=== PATIENT | female | born 1985 | race Caucasian/White ===

== ENCOUNTER 2022-11-18 06:12 | Inpatient (IN) ==
[2022-11-18] MEDS ORDERED: ANCEF VIAL 1 GRAM ONE (06:45)
[2022-11-18] MEDS ORDERED: NS 100 ML IV 100 ML ONE (06:45)
[2022-11-18] MEDS ORDERED: D5 1/2 NS 1,000 ML 1,000 ML IV ONE ×2 (06:46→08:28)
[2022-11-18] MEDS ORDERED: BETADINE SOLN ONE (06:56)
[2022-11-18] MEDS ORDERED: FENTANYL VIAL INJ 100 mcg ONE (07:01)
[2022-11-18] MEDS ORDERED: VERSED ONE (07:01)
[2022-11-18] MEDS ORDERED: ZOFRAN INJ 4 MG VIAL ONE (07:01)
[2022-11-18] MEDS ORDERED: DECADRON INJ ONE (07:01)
[2022-11-18] MEDS ORDERED: PEPCID 20 MG VIAL ONE (07:01)
[2022-11-18] MEDS ORDERED: TORADOL 30 MG VIAL ONE (07:02)
[2022-11-18] MEDS ORDERED: BRIDION ONE (07:02)
[2022-11-18] MEDS ORDERED: KETAMINE HCL ONE (07:02)
[2022-11-18] MEDS ORDERED: OFIRMEV IV 1000 MG VIAL 1,000 MG/100 ML VIAL IV ONE (07:02)
[2022-11-18] MEDS ORDERED: DIPRIVAN VIAL 20 ML ONE (07:02)
[2022-11-18] MEDS ORDERED: ZEMURON 100 MG VIAL ONE (07:02)
[2022-11-18] MEDS ORDERED: XYLOCAINE 2 % (PLAIN) ONE (07:02)
[2022-11-18 07:21] VITALS: BMI 31.1
[2022-11-18] MEDS ORDERED: ANCEF VIAL 1 GRAM IVP ONE (07:25)
[2022-11-18] MEDS ORDERED: LACRI-LUBE S.O.P. ONE (07:49)
[2022-11-18] MEDS ORDERED: ProvayBLUE 0.5% ONE (08:22)
[2022-11-18] MEDS ORDERED: DILAUDID INJ IVP PRN (08:42)
[2022-11-18] MEDS ORDERED: BENADRYL INJ 50 MG VIAL IVP PRN ×2 (08:42→10:37)
[2022-11-18] MEDS ORDERED: BARHEMSYS INJ IVP PRN (08:42)
[2022-11-18] MEDS ORDERED: DILAUDID INJ ONE ×2 (08:44→10:15)
[2022-11-18] MEDS ORDERED: ROBINUL ONE (08:58)
[2022-11-18] MEDS ORDERED: ULTANE GAS IN ONE (09:29)
[2022-11-18] MEDS ORDERED: ZOFRAN INJ 4 MG VIAL IVP PRN (10:37)
[2022-11-18] MEDS: MORPHINE SULFATE PCA 30 MG IVP PRN ×3 (11:01→21:33)
[2022-11-18] MEDS: D5 1/2 NS 1,000 ML 1,000 ML IV SCH ×3 (11:03→15:41)
[2022-11-18] MEDS: TORADOL 30 MG VIAL IVP PRN ×2 (12:17→16:39)
[2022-11-18] MEDS ORDERED: NS IRRIGATION* 500 ML IR ONE (14:26)
[2022-11-18] MEDS ORDERED: STERILE WATER IRRIGATION IR ONE (14:26)
[2022-11-19] MEDS: D5 1/2 NS 1,000 ML 1,000 ML IV SCH ×4 (01:37→22:22)
[2022-11-19 04:51] LABS: BASOPHILS % (AUTO) 0.1 % (0.2-1.0); HEMATOCRIT 33.1 % (36.0-47.0); HEMOGLOBIN 11.6 g/dL (12.0-16.0); LYMPHOCYTES # (AUTO) 1.2 X10^3/uL (1.3-2.9); LYMPHOCYTES % (AUTO) 13.3 % (21.0-51.0); MEAN CORPUSCULAR HEMOGLOBIN 30.3 pg (27.0-34.0); MEAN CORPUSCULAR VOLUME 86.5 fL (80.0-100.0); MEAN PLATELET VOLUME 8.3 fL (7.4-11.0); MONOCYTES # (AUTO) 0.7 x10^3/uL (0.3-0.8); MONOCYTES % (AUTO) 7.8 % (0.0-13.0); NEUTROPHILS # (AUTO) 6.8 x10^3/uL (2.2-4.8); NEUTROPHILS % (AUTO) 78.8 % (42.0-75.0); PLATELET COUNT 211 X10^3/uL (150.0-450.0); RED BLOOD COUNT 3.82 X10^6/uL (3.5-5.4); RED CELL DISTRIBUTION WIDTH 12.6 % (11.6-16.5); WHITE BLOOD COUNT 8.7 X10^3/uL (3.6-10.0)
[2022-11-19 04:59] LABS: BLOOD UREA NITROGEN 7 mg/dL (7-18); CALCIUM 7.6 mg/dL (8.5-10.1); CARBON DIOXIDE 27.7 mmol/L (21-32); CHLORIDE 101 mmol/L (98-107); COR NA(FOR HYPERGLY) 137 mmol/L (136-145); CREATININE 0.67 mg/dL (0.55-1.02); GLUCOSE 139 mg/dL (65-99); SODIUM 136 mmol/L (136-145); eGFR NON BLACK RACES > 60 (>60)
[2022-11-19] MEDS: TORADOL 30 MG VIAL IVP PRN (07:03)
[2022-11-19] MEDS: MORPHINE SULFATE PCA 30 MG IVP PRN (07:03)
[2022-11-19] MEDS ORDERED: MOTRIN TAB 800 MG PO PRN (07:32)
[2022-11-19] MEDS: COLACE CAP 100 MG PO SCH ×2 (08:19→20:17)
[2022-11-19] MEDS: PROTONIX TAB 40 MG PO SCH (08:19)
[2022-11-19] MEDS: PERCOCET TAB 5/325 MG PO PRN ×3 (09:15→18:03)
[2022-11-19] MEDS ORDERED: MILK OF MAGNESIA PO PRN (10:24)
[2022-11-19] MEDS: BACTROBAN TOPICAL OINT TOP SCH ×2 (14:15→22:23)
[2022-11-19] MEDS ORDERED: MYLICON TAB 80 MG CHEW PO PRN (17:30)
[2022-11-20] MEDS: PERCOCET TAB 5/325 MG PO PRN ×2 (00:15→08:50)
[2022-11-20] MEDS: D5 1/2 NS 1,000 ML 1,000 ML IV SCH (02:28)
[2022-11-20 04:26] VITALS: O2SAT 96
[2022-11-20] MEDS: BACTROBAN TOPICAL OINT TOP SCH (06:24)
[2022-11-20 08:07] VITALS: BP 141/63; PULSE 84; TEMP 98.2
[2022-11-20] MEDS: COLACE CAP 100 MG PO SCH (08:50)
[2022-11-20] MEDS: PROTONIX TAB 40 MG PO SCH (08:51)
[2022-11-20] MEDS ORDERED: VIVELLE DOT TD SCH (12:30)
[2022-11-23] MEDS ORDERED: VIVELLE DOT TD SCH (09:00)
== END 2022-11-20 10:05 | disposition home or self-care (01) | DRG 743 ==
LOC: MED/SURG 06:12 → EDUNIT# 07:30
PROVIDERS: ADMIT Specialist; ATTEND Specialist
DX: N94.19 Other specified dyspareunia; N73.6 Female pelvic peritoneal adhesions (postinfective); K59.09 Other constipation; D25.2 Subserosal leiomyoma of uterus; R10.2 Pelvic and perineal pain; R30.0 Dysuria